=== PATIENT | female | born 1930 | race Caucasian/White ===

== ENCOUNTER 2018-04-03 10:01 | Outpatient (CLI) | payer MEDICARE ==
--- NOTE | 2018-04-03 11:23 | CT ---
CT BRAIN: HISTORY: Followup craniotomy 6 weeks ago. FINDINGS: Noncontrast-enhanced CT images of the brain obtained. Baseline exam. Previous comparison study is n ot available. Noncontrast-enhanced CT images of the brain demonstrate a right frontoparietal craniotomy defect. A small epidural fluid collection is seen compatible with patient's previous surgery. Encephalomalacic change is seen in the right parietal parenchyma. No evidence of acute intracranial masses, hemorrhages, or strokes seen. 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 No acute abnormality is seen. POS: [facility]
== END 2018-04-03 10:02 | disposition home or self-care (01) ==
LOC: TBSIIMAG 10:01
PROVIDERS: ATTEND Surgery
DX: S06.5X9A Traumatic subdural hemorrhage with loss of consciousness of unspecified duration, initial encounter (principal); G93.89 Other specified disorders of brain; Z98.890 Other specified postprocedural states
CPT/HCPCS: 70450